=== PATIENT | female | born 1960 | race Hispanic/Latino ===

== ENCOUNTER 2017-06-06 13:19 | Outpatient (CLI) | payer MEDICARE | END 2017-06-06 13:20 | disposition home or self-care (01) | LOC: BICRAD 13:19 | PROVIDERS: ATTEND Family Medicine | DX: M48.04 Spinal stenosis, thoracic region (principal); M46.84 Other specified inflammatory spondylopathies, thoracic region; M46.86 Other specified inflammatory spondylopathies, lumbar region | CPT/HCPCS: 72072; 72100 ==

== ENCOUNTER 2019-02-19 13:38 | Outpatient (CLI) | payer MEDICARE ==
--- NOTE | 2019-02-19 14:20 | MMO ---
Bilateral MAMMO Bilat Screen [facility]. CLINICAL HISTORY: Patient is 58 years old and is seen for screening. The patient has no family history of breast cancer. The patient has no personal history of cancer. VIEWS: The views performed were: bilateral craniocaudal with tomosynthesis and bilateral mediolateral oblique with tomosynthesis. FILMS COMPARED: The present examination has been compared to prior imaging studies performed at [facility] on 08/21/2013, 07/14/2015, 01/05/2017 and 02/03/2018. This study has been interpreted with the assistance of computer-aided detection. MAMMOGRAM FINDINGS: There are scattered fibroglandular densities. There are vascular calcifications seen in both breasts. There are no suspicious masses, suspicious calcifications, or new areas of architectural distortion. IMPRESSION: A ROUTINE FOLLOW-UP MAMMOGRAM IN 1 YEAR IS RECOMMENDED. THE RESULTS OF THIS EXAM WERE SENT TO THE PATIENT. ACR BI-RADS Category 2 - Benign finding MAMMOGRAPHY NOTE: 1. A negative mammogram report should not delay a biopsy if a dominant of clinically suspicious mass is present. 2. Approximately 10% to 15% of breast cancers are not detected by mammography. 3. Adenosis and dense breasts may obscure an underlying neoplasm. Reported by: BRITTANY CROWE MD Electonically Signed: [id number]
== END 2019-02-19 13:39 | disposition home or self-care (01) ==
LOC: BICMAMMO 13:38
PROVIDERS: ATTEND Family Medicine
DX: Z12.31 Encounter for screening mammogram for malignant neoplasm of breast (principal)
CPT/HCPCS: 77063; 77067

== ENCOUNTER 2020-02-19 08:59 | Outpatient (CLI) | payer MEDICARE ==
--- NOTE | 2020-02-19 09:43 | RAD ---
Exam: Right shoulder 3 views: HISTORY: Pain following a fall 3 weeks ago COMPARISON: Chest x-ray, 04/26/2014 FINDINGS: 0.8 x 1.5 cm diameter circumscribed area of calcification over the greater tuberosity region evidence for calcific peritendonosis. No evidence for fracture, dislocation, or other significant acute osseous abnormality. IMPRESSION: Evidence for calcific peritendonosis. No fracture or dislocation or other acute process.
== END 2020-02-19 09:00 | disposition home or self-care (01) ==
LOC: BICRAD 08:59
PROVIDERS: ATTEND Family Medicine
DX: M25.511 Pain in right shoulder (principal); M75.31 Calcific tendinitis of right shoulder

== ENCOUNTER 2023-10-04 08:10 | Outpatient (CLI) | payer MEDICARE | END 2023-10-04 08:11 | disposition home or self-care (01) | LOC: BICMAMMO 08:10 | PROVIDERS: ATTEND Family Medicine | DX: Z12.31 Encounter for screening mammogram for malignant neoplasm of breast (principal) | CPT/HCPCS: 77063; 77067 ==